=== PATIENT | female | born 1995 ===

== ENCOUNTER 2017-08-09 09:01 | Emergency (ER) | payer OTHER ==
[2017-08-09 09:06] VITALS: BP 125/81; PULSE 81; RESP 16; TEMP 98; O2SAT 99
--- NOTE | 2017-08-09 09:32 | C.PDOC ---
History Of Present Illness VIA TRANS L NOSE BLEED THIS MORNING NOW RESOLVED. NO TRAUMA RESOLVED AFTER 20 MINS. NO OTHER ASSOC EXAM NAD HEENT NOSE NO ACTIVE EPISTAXIS, NO VISUALIZED CLOT ATRAUM. REMAINDER NEG Time Seen by Provider: 08/09/17 09:20 Chief Complaint (Nursing): ENT Problem History Per: Patient, Other ([employer]) History/Exam Limitations: None Onset/Duration Of Symptoms: Sudden Onset (This morning) Past Medical History Reviewed: Historical Data, Nursing Documentation, Vital Signs Vital Signs: Last Vital Signs Temp 98.0 F 08/09/17 09:04 Pulse 81 08/09/17 09:04 Resp 16 08/09/17 09:04 BP 125/81 08/09/17 09:04 Pulse Ox 99 08/09/17 10:00 Family History: States: No Known Family Hx Review Of Systems Except As Marked, All Systems Reviewed And Found Negative. Constitutional: Negative for: Fever ENT: Positive for: Nose Discharge (Nose bleed, resolved 20 mins later) Musculoskeletal: Negative for: Neck Pain Physical Exam - Physical Exam Appears: Non-toxic, No Acute Distress Skin: Warm, Dry, No Rash Head: Atraumatic, Normacephalic Nose: Normal, No Epistaxis, Other (No visualized clots) Oral Mucosa: Moist Neck: Normal, Supple Extremity: Normal ROM, No Swelling Neurological/Psych: Oriented x3, Normal Speech, Normal Motor ED Course And Treatment O2 Sat by Pulse Oximetry: 99 (RA) Pulse Ox Interpretation: Normal Disposition Counseled Patient/Family Regarding: Diagnosis, Need For Followup - Disposition Referrals: YOUR,PMD [Other] Disposition: HOME/ ROUTINE Disposition Time: 09:34 Condition: GOOD Instructions: Nosebleed (ED) Forms: [employer] [facility] (Guyanese) Print Language: NORTH KOREAN - Clinical Impression Clinical Impression: Epistaxis - Scribe Statement The provider has reviewed the documentation as recorded by the Willie Hurley Provider Attestation: All medical record entries made by the Willie were at my direction and personally dictated by me. I have reviewed the chart and agree that the record accurately reflects my personal performance of the history, physical exam, medical decision making, and the department course for this patient. I have also personally directed, reviewed, and agree with the discharge instructions and disposition.
== END 2017-08-09 09:50 | disposition home or self-care (01) ==
LOC: C.ER 09:01
DX: R04.0 Epistaxis (principal)

== ENCOUNTER 2017-09-17 09:27 | Emergency (ER) | payer SELFPAY ==
[2017-09-17 09:31] VITALS: BMI 29.2
[2017-09-17 10:30] LABS: HCG,QUALITATIVE URINE NEGATIVE (NEGATIVE)
[2017-09-17 10:32] LABS: SQUAMOUS EPITHIAL 1 /hpf (0-5); URINE BILIRUBIN NEGATIVE (NEGATIVE); URINE BLOOD 1+ (NEGATIVE); URINE CLARITY Clear (Clear); URINE COLOR Straw (YELLOW); URINE GLUCOSE (UA) NORMAL (Normal); URINE LEUKOCYTE ESTERASE NEG Leu/uL (Negative); URINE NITRATE NEGATIVE (NEGATIVE); URINE PROTEIN NEGATIVE (NEGATIVE); URINE UROBILINOGEN NORMAL mg/dL (0.2-1.0)
--- NOTE | 2017-09-17 11:04 | C.PDOC ---
History Of Present Illness 22 year old female presents to the ED c/o abdominal pain mostly in the left suprapubic region for the past 4 days. Patient also reports feeling slight discomfort while urinating sometimes and feeling nauseous as well. Patient denies fever, chills, vomit, diarrhea, vaginal bleeding, vaginal discharge, back pain. Time Seen by Provider: 09/17/17 09:40 Chief Complaint (Nursing): Abdominal Pain History Per: Patient History/Exam Limitations: no limitations Onset/Duration Of Symptoms: Days Current Symptoms Are (Timing): Still Present Severity: Mild Location Of Pain/Discomfort: Suprapubic Radiation Of Pain To:: None Quality Of Discomfort: "Pain" Associated Symptoms: Urinary Symptoms. denies: Fever, Chills, Vomiting, Loss Of Appetite, Constipation Exacerbating Factors: None Alleviating Factors: None Recent travel outside of the [place]: No Additional History Per: Patient Abnormal Vaginal Bleeding: No Past Medical History Reviewed: Historical Data, Nursing Documentation, Vital Signs Vital Signs: Last Vital Signs Temp 98.2 F 09/17/17 16:10 Pulse 80 09/17/17 16:10 Resp 18 09/17/17 16:10 BP 113/79 09/17/17 16:10 Pulse Ox 98 09/17/17 16:10 - Medical History PMH: No Chronic Diseases Surgical History: No Surg Hx Family History: States: Unknown Family Hx - Social History Hx Alcohol Use: No Hx Substance Use: No - Immunization History Hx Tetanus Toxoid Vaccination: No Hx Influenza Vaccination: No Hx Pneumococcal Vaccination: No Review Of Systems Constitutional: Negative for: Fever, Chills Cardiovascular: Negative for: Chest Pain, Palpitations Respiratory: Negative for: Cough, Shortness of Breath Gastrointestinal: Positive for: Abdominal Pain. Negative for: Nausea, Vomiting Genitourinary: Positive for: Dysuria. Negative for: Hematuria, Vaginal Discharge, Vaginal Bleeding Musculoskeletal: Negative for: Back Pain Skin: Negative for: Rash Neurological: Negative for: Weakness, Numbness Physical Exam - Physical Exam Appears: Non-toxic, No Acute Distress Skin: Normal Color, Warm, Dry Head: Atraumatic, Normacephalic Eye(s): bilateral: Normal Inspection Nose: No Discharge, No Deformity Oral Mucosa: Moist Neck: Normal ROM, Supple Chest: Symmetrical Cardiovascular: Rhythm Regular, No Murmur Respiratory: Normal Breath Sounds, No Rales, No Rhonchi, No Wheezing Gastrointestinal/Abdominal: Soft, Tenderness (Suprapubic L > R) Back: Normal Inspection Pelvic: Normal External Exam, Vaginal Discharge (white), No Cervical Motion Tenderness, No Adnexal Tenderness, No Tender Uterus Extremity: Normal ROM, No Pedal Edema, No Calf Tenderness, No Deformity, No Swelling Neurological/Psych: Oriented x3, Normal Speech, Normal Cognition Gait: Steady ED Course And Treatment - Laboratory Results Result Diagrams: 09/17/17 11:46 09/17/17 11:46 O2 Sat by Pulse Oximetry: 98 (On RA) Pulse Ox Interpretation: Normal - CT Scan/US Pelvic US Other Rad Studies (CT/US): Read By Radiologist, Radiology Report Reviewed CT/US Interpretation: FINDINGS: UTERUS: Measures 7.6 x 2.6 x 3.6 cm. Anteverted, normal in size and appearance. No fibroid or other mass lesion seen. ENDOMETRIUM: Measures 3.0 mm in diameter. Normal in appearance. CERVIX : No cervical abnormality identified. RIGHT OVARY: Measures 2.7 x 1.6 x 1.6 cm. No solid mass. Normal flow. LEFT OVARY: Measures 2.6 x 1.4 x 1.7 cm. No solid mass. Normal flow. FREE FLUID: No significant free fluid noted. OTHER FINDINGS: None. IMPRESSION: Normal pelvic ultrasound. CT abdomen/pelvis Other Rad Studies (CT/US): Read By Radiologist, Radiology Report Reviewed CT/US Interpretation: Accession No. : [id number]. Patient Name / ID : ELIZABETH HICKS / [id number]. Exam Date : 09/17/2017 14:35:00 ( Approved ). Study Comment : Sex / Age : F / 22Y. Creator : Bertha Maher MD. Dictator : Bertha Maher MD. Line Tender : Steward/Stewardess Lounge : Bertha Maher MD. Approver2 : Report Date : 09/17/2017 15:18:27. My Comment : . PROCEDURE: CT Abdomen and Pelvis without Oral or IV contrast. HISTORY: LLQ pain, normal pelvic US. COMPARISON: Pelvic ultrasound performed 09/17/17. TECHNIQUE: Contiguous axial images of the abdomen and pelvis. No oral or IV contrast administered. Coronal and Sagittal reformats generated and reviewed. Radiation dose: Total exam DLP = 1005.77 mGy-cm. This CT exam was performed using one or more of the following dose reduction techniques: Automated exposure control, adjustment of the mA and/or kV according to patient size, and/or use of iterative reconstruction technique. FINDINGS: There is limited evaluation of the solid organs without the administration of IV contrast. LOWER THORAX: No visible consolidation, pleural effusion, or pneumothorax. LIVER: Unremarkable unenhanced appearance. GALLBLADDER AND BILE DUCTS: Unremarkable unenhanced appearance. PANCREAS: Unremarkable unenhanced appearance. SPLEEN: Unremarkable unenhanced appearance. ADRENALS: Unremarkable unenhanced appearance. KIDNEYS AND URETERS : No hydronephrosis or obstructing renal calculus. BLADDER: The urinary bladder appears unremarkable. REPRODUCTIVE: Uterus is present. APPENDIX: The presumed appendix appears within normal limits of caliber. No secondary signs of acute appendicitis. BOWEL: The stomach is nondistended. Lack of oral contrast limits evaluation for bowel pathology. The bowel loops appear within normal limits of caliber without evidence of intestinal obstruction. PERITONEUM: No significant free fluid. No definite free air. LYMPH NODES: No bulky lymphadenopathy identified. VASCULATURE: No aortic aneurysm. BONES: Mildly diffuse increased bone density of unclear significance. Correlate clinically for possibility of metabolic disorder or renal osteodystrophy. OTHER FINDINGS: None. IMPRESSION: No acute abdominal or pelvic pathology identified. Mildly diffuse increased bone density of unclear significance. Correlate clinically for possibility of metabolic disorder or renal osteodystrophy. Progress Note: Plan: -Labs. -IV fluids. -Zofran 4 mg IVP. -UA. -Pelvis US - neg. -Abd/pelv CT- neg. GC/Chlam sent. Rocephin/Zithromax given. D/C on Macrobid with clinic f/u. urine showed mild hematuria Disposition - Disposition Referrals: [facility] [Outside] Disposition: HOME/ ROUTINE Disposition Time: 15:38 Condition: STABLE Additional Instructions: Follow up in Clinic within 1-2 days. Return to ED if feel worse. Prescriptions: Nitrofurantoin Macrocrystals [Macrobid] 1 cap PO BID #14 cap Instructions: Pelvic Pain in Women (ED), Dysuria (ED) Forms: [employer] (Lithuanian) Print Language: WELSH - Clinical Impression Clinical Impression: Pelvic pain, Dysuria - PA / [employer] / Resident Statement MD/DO has reviewed & agrees with the documentation as recorded. - Scribe Statement The provider has reviewed the documentation as recorded by the Scribe James Feliz All medical record entries made by the Isadoraibsavannah were at my direction and personally dictated by me. I have reviewed the chart and agree that the record accurately reflects my personal performance of the history, physical exam, medical decision making, and the department course for this patient. I have also personally directed, reviewed, and agree with the discharge instructions and disposition.
[2017-09-17] MEDS ORDERED: Sodium Chloride 0.9% 1,000 ML IV STA (11:07)
[2017-09-17] MEDS ORDERED: Sodium Chloride 0.9% 1,000 ML ONE (11:50)
[2017-09-17 12:00] LABS: BASO % 0.5 % (0.0-2.0); EOS # 0.1 K/uL (0.0-0.7); EOS % 0.8 % (0.0-4.0); LYMPH # 1.8 K/uL (1.0-4.3); LYMPH % 19.6 % (20.0-40.0); MEAN CELL VOLUME 87.3 fL (81.0-99.0); MEAN CORPUSCULAR HEMOGLOBIN 30.2 pg (27.0-31.0); MEAN CORPUSCULAR HGB CONC 34.5 g/dL (33.0-37.0); MEAN PLATELET VOLUME 10.3 fL (7.2-11.7); MONO # 0.3 K/uL (0.0-0.8); MONO % 3.2 % (0.0-10.0); NEUT # 6.8 K/uL (1.8-7.0); NEUT % 75.9 % (50.0-75.0); NRBC % 0.1 % (0.0-2.0); RBC 4.96 Mil/uL (3.80-5.20); RED CELL DISTRIBUTION WIDTH 13.3 % (11.5-14.5)
[2017-09-17 12:05] LABS: ALBUMIN 4.6 g/dL (3.5-5.0); ALT/SGPT 31 U/L (9-52); AST/SGOT 26 U/L (14-36); BLOOD UREA NITROGEN 13 mg/dL (7-17); GFR AFRICAN-AMERICAN > 60; GFR NON-AFRICAN AMERICAN > 60; LIPASE 56 U/L (23-300)
--- NOTE | 2017-09-17 13:27 | US ---
HISTORY: Pelvic pain/dysuria with NL UA COMPARISON: None available. TECHNIQUE: Transabdominal pelvic ultrasound was performed. FINDINGS: UTERUS: Measures 7.6 x 2.6 x 3.6 cm. Anteverted, normal in size and appearance. No fibroid or other mass lesion seen. ENDOMETRIUM: Measures 3.0 mm in diameter. Normal in appearance. CERVIX: No cervical abnormality identified. RIGHT OVARY: Measures 2.7 x 1.6 x 1.6 cm. No solid mass. Normal flow. LEFT OVARY: Measures 2.6 x 1.4 x 1.7 cm. No solid mass. Normal flow. FREE FLUID: No significant free fluid noted. OTHER FINDINGS: None. IMPRESSION: Normal pelvic ultrasound.
[2017-09-17 15:15] VITALS: O2SAT 98
--- NOTE | 2017-09-17 15:20 | CT ---
PROCEDURE: CT Abdomen and Pelvis without Oral or IV contrast. HISTORY: LLQ pain, normal pelvic US COMPARISON: Pelvic ultrasound performed 09/17/17 TECHNIQUE: Contiguous axial images of the abdomen and pelvis. No oral or IV contrast administered. Coronal and Sagittal reformats generated and reviewed. Radiation dose: Total exam DLP = 1005.77 mGy-cm. This CT exam was performed using one or more of the following dose reduction techniques: Automated exposure control, adjustment of the mA and/or kV according to patient size, and/or use of iterative reconstruction technique. FINDINGS: There is limited evaluation of the solid organs without the administration of IV contrast. LOWER THORAX: No visible consolidation, pleural effusion, or pneumothorax. LIVER: Unremarkable unenhanced appearance. GALLBLADDER AND BILE DUCTS: Unremarkable unenhanced appearance. PANCREAS: Unremarkable unenhanced appearance. SPLEEN: Unremarkable unenhanced appearance. ADRENALS: Unremarkable unenhanced appearance. KIDNEYS AND URETERS: No hydronephrosis or obstructing renal calculus. BLADDER: The urinary bladder appears unremarkable. REPRODUCTIVE: Uterus is present. APPENDIX: The presumed appendix appears within normal limits of caliber. No secondary signs of acute appendicitis. BOWEL: The stomach is nondistended. Lack of oral contrast limits evaluation for bowel pathology. The bowel loops appear within normal limits of caliber without evidence of intestinal obstruction. PERITONEUM: No significant free fluid. No definite free air. LYMPH NODES: No bulky lymphadenopathy identified. VASCULATURE: No aortic aneurysm. BONES: Mildly diffuse increased bone density of unclear significance. Correlate clinically for possibility of metabolic disorder or renal osteodystrophy. OTHER FINDINGS: None. IMPRESSION: No acute abdominal or pelvic pathology identified. Mildly diffuse increased bone density of unclear significance. Correlate clinically for possibility of metabolic disorder or renal osteodystrophy.
[2017-09-17] MEDS ORDERED: cefTRIAXone (Rocephin) 250 mg Inj IM STA (15:51)
[2017-09-17 16:11] VITALS: BP 113/79; PULSE 80; RESP 18; TEMP 98.2
== END 2017-09-17 16:29 | disposition home or self-care (01) ==
LOC: C.ER 09:27
DX: R30.0 Dysuria (principal); R10.2 Pelvic and perineal pain
CPT/HCPCS: 74176; 76856; 80053; 81001; 83690; 84703; 85025; 87491; 87591; 96361; 96372; 96374; 99285; J0696; J2405; J7040